=== PATIENT | male | born 1950 | race Caucasian/White ===

== ENCOUNTER → 2016-06-07 | Outpatient (CLI) | payer OTHER ==
[2016-06-07 13:14] LABS: CHLORIDE,CL 106 mmol/L (98-110); SODIUM,NA 141 mmol/L (136-146)
== END ==
LOC: MW.LAB 12:09
PROVIDERS: ATTEND Internal Medicine
DX: N18.3 Chronic kidney disease, stage 3 (moderate) (principal)
CPT/HCPCS: 36415; 80069; 82306; 82310; 83970; 85025

== ENCOUNTER 2019-01-30 08:52 | Inpatient (IN) | payer OTHER ==
[2019-01-30] MEDS ORDERED: Albuterol/Ipratropium 3.0-0.5 MG/3 ML Neb Soln NEB ONE (08:55)
[2019-01-30] MEDS ORDERED: methylPREDNISolone Sodium Succinate 125 MG/2 ML SDV IVPUSH ONE (08:55)
[2019-01-30] MEDS ORDERED: Albuterol/Ipratropium 3.0-0.5 MG/3 ML Neb Soln ONE (08:55)
--- NOTE | 2019-01-30 08:56 | EDM.PDOC ---
ED HPI GENERAL MEDICAL PROBLEM - General Stated Complaint: SOB Time Seen by Provider: 01/30/19 08:56 Source of Information: Reports: Patient - History of Present Illness INITIAL COMMENTS - FREE TEXT/NARRATIVE: HISTORY AND PHYSICAL: History of present illness: [Patient presents with hypoxia shortness of breath and audible expiratory wheeze no fever nausea vomiting chills sweats no chest pain short headache dizziness palpitation no bowel or urine symptoms He has been followed from a renal function standpoint over the last several months with nephrology and is aware that he may be requiring dialysis at some point in the near future however they have not elected to go on dialysis as of right now , he is making urine his last void was this morning Review of systems: As per history of present illness and below otherwise all systems reviewed and negative. Past medical history: As per history of present illness and as reviewed below otherwise noncontributory. Surgical history: As per history of present illness and as reviewed below otherwise noncontributory. Social history: No reported history of drug or alcohol abuse. Family history: As per history of present illness and as reviewed below otherwise noncontributory. Physical exam: HEENT: Atraumatic, normocephalic, pupils reactive, negative for conjunctival pallor or scleral icterus, mucous membranes moist, throat clear, neck supple, nontender, trachea midline. LunExpiratory wheeze throughouteath sounds equal bilaterally, chest nontender. chest cleared well post DuoNeb and Solu-Medrol Heart: S1S2, regular, negative for clicks, rubs, or JVD. Abdomen: Soft, nondistended, nontender. Negative for masses or hepatosplenomegaly. Negative for costovertebral tenderness. Pelvis: Stable nontender. Genitourinary: Deferred. Rectal: Deferred. Extremities: Atraumatic, negative for cords or calf pain. Neurovascular unremarkable. Neuro: Awake, alert, oriented. Cranial nerves II through XII unremarkable. Cerebellum unremarkable. Motor and sensory unremarkable throughout. Exam nonfocal. Diagnostics: [TBC CMP UA troponin d-dimer Blood cultures 2 ] AG Chest 1 view Therapeutics: [ normal saline Zosyn Vancomycin Impression: [ right upper lobe infiltrate CHF Renal failure Chronic history of baseline ] Definitive disposition and diagnosis as appropriate pending reevaluation and review of above. - Related Data Allergies Allergy/AdvReac Type Severity Reaction Status Date / Time No Known Allergies Allergy Verified 01/30/19 08:57 Home Meds: Home Meds Aspirin 81 mg PO DAILY 01/30/19 [History] Cabergoline [Dostinex] 0.5 mg PO ASDIRECTED 01/30/19 [History] Calcitriol [Rocaltrol] 0.25 mg PO DAILY 01/30/19 [History] Doxazosin [Cardura] 3 mg PO DAILY 01/30/19 [History] Furosemide 80 mg PO DAILY 01/30/19 [History] Glimepiride [Amaryl] 4 mg PO BID 01/30/19 [History] Labetalol HCl [Labetalol] 300 mg PO DAILY 01/30/19 [History] Lisinopril 40 mg PO DAILY 01/30/19 [History] Multivitamin [Multivitamins] 1 tab PO DAILY 01/30/19 [History] Potassium Chloride [Klor-Con] 10 meq PO DAILY 01/30/19 [History] amLODIPine [Norvasc] 10 mg PO DAILY 01/30/19 [History] atorvaSTATin [Lipitor] 10 mg PO DAILY 01/30/19 [History] ED ROS GENERAL - Review of Systems Review Of Systems: See Below ED EXAM, GENERAL - Physical Exam Exam: See Below Course - Vital Signs Last Recorded V/S: Last Vital Signs Temp 96.6 F 01/30/19 08:57 Pulse 51 L 01/30/19 10:06 Resp 18 01/30/19 10:06 BP 122/62 01/30/19 10:06 Pulse Ox 94 L 01/30/19 10:06 - Orders/Labs/Meds Orders: Active Orders 24 hr Category Date Time Status EKG Documentation Completion [RC] STAT Care 01/30/19 08:56 Active RT Aerosol Therapy [RC] ASDIRECTED Care 01/30/19 08:56 Active B-TYPE NATRIURETIC PEPTIDE,BNP [CHEM] Stat Lab 01/30/19 09:15 Received Piperacillin/Tazobactam [Zosyn] 2.25 gm Med 01/30/19 10:40 Ordered Sodium Chloride 0.9% [Normal Saline] 50 ml IV ONETIME Sodium Chloride 0.9% [Normal Saline] 1,000 ml Med 01/30/19 09:00 Active IV STAT Vancomycin 1 gm Med 01/30/19 10:40 Ordered Sodium Chloride 0.9% [Normal Saline (AdvBag)] 250 ml IV ONETIME Medication Orders Sodium Chloride (Normal Saline) 1,000 mls @ 125 mls/hr IV STAT XIAO Last Admin: 01/30/19 09:12 Dose: 125 mls/hr Labs: Laboratory Tests 01/30/19 01/30/19 01/30/19 Range/Units 09:15 09:15 09:15 WBC 7.34 (4.0-11.0) K/uL RBC 3.74 L (4.50-5.90) M/uL Hgb 11.3 L (13.0-17.0) g/dL Hct 37.8 L (38.0-50.0) % MCV 101.1 H (80.0-98.0) fL MCH 30.2 (27.0-32.0) pg MCHC 29.9 L (31.0-37.0) g/dL RDW Std Deviation 53.3 (28.0-62.0) fl RDW Coeff of Amberly 15 (11.0-15.0) % Plt Count 212 (150-400) K/uL MPV 10.20 (7.40-12.00) fL Neut % (Auto) 79.9 (48.0-80.0) % Lymph % (Auto) 12.3 L (16.0-40.0) % [place] % (Auto) 6.0 (0.0-15.0) % Eos % (Auto) 1.5 (0.0-7.0) % Baso % (Auto) 0.3 (0.0-1.5) % Neut # (Auto) 5.9 H (1.4-5.7) K/uL Lymph # (Auto) 0.9 (0.6-2.4) K/uL [place] # (Auto) 0.4 (0.0-0.8) K/uL Eos # (Auto) 0.1 (0.0-0.7) K/uL Baso # (Auto) 0.0 (0.0-0.1) K/uL Nucleated RBC % 0.0 /100WBC Nucleated RBCs # 0 K/uL INR 1.11 D-Dimer, Quantitative 2.80 H (0.0-0.50) mg/L FEU Sodium 143 (136-148) mmol/L Potassium 5.1 (3.5-5.1) mmol/L Chloride 108 H (98-107) mmol/L Carbon Dioxide 25.5 (21.0-32.0) mmol/L BUN 62 H (7.0-18.0) mg/dL Creatinine 6.3 H (0.8-1.3) mg/dL Est Cr Clr Drug Dosing 12.68 mL/min Estimated GFR (MDRD) 8.9 ml/min Glucose 124 H (74-106) mg/dL Calcium 8.2 L (8.5-10.1) mg/dL Total Bilirubin 0.6 (0.2-1.0) mg/dL AST 12 L (15-37) IU/L ALT 22 (14-63) IU/L Alkaline Phosphatase 68 (46-116) U/L Troponin I < 0.050 (0.000-0.056) ng/mL Total Protein 6.5 (6.4-8.2) g/dL Albumin 3.1 L (3.4-5.0) g/dL Globulin 3.4 (2.6-4.0) g/dL Albumin/Globulin Ratio 0.9 (0.9-1.6) Meds: Medications Generic Name Dose Route Start Last Admin Trade Name Freq PRN Reason Stop Dose Admin Sodium Chloride 1,000 mls @ 125 mls/hr 01/30/19 09:00 01/30/19 09:12 Normal Saline IV 125 mls/hr STAT XIAO Administration Discontinued Medications Generic Name Dose Route Start Last Admin Trade Name Freq PRN Reason Stop Dose Admin Albuterol/Ipratropium 3 ml 01/30/19 08:55 01/30/19 09:09 Duoneb 3.0-0.5 Mg/3 Ml NEB 01/30/19 08:56 3 ml ONETIME ONE Administration Albuterol/Ipratropium Confirm 01/30/19 08:55 01/30/19 09:12 Duoneb 3.0-0.5 Mg/3 Ml Administered 01/30/19 08:56 Not Given Dose 3 ml .ROUTE .STK-MED ONE Methylprednisolone Sodium Succinate 125 mg 01/30/19 08:55 01/30/19 09:12 Solu-Medrol IVPUSH 01/30/19 08:56 125 mg ONETIME ONE Administration Departure - Departure Time of Disposition: 10:43 Disposition: Admitted As Inpatient 67 Condition: Poor Clinical Impression: Hypoxia, Right upper lobe pneumonia - Discharge Information - My Orders Last 24 Hours: My Active Orders 01/30/19 08:56 EKG Documentation Completion [RC] STAT RT Aerosol Therapy [RC] ASDIRECTED 01/30/19 09:00 Sodium Chloride 0.9% [Normal Saline] 1,000 ml IV STAT 01/30/19 09:15 B-TYPE NATRIURETIC PEPTIDE,BNP [CHEM] Stat 01/30/19 10:40 Piperacillin/Tazobactam [Zosyn] 2.25 gm Sodium Chloride 0.9% [Normal Saline] 50 ml IV ONETIME Vancomycin 1 gm Sodium Chloride 0.9% [Normal Saline (AdvBag)] 250 ml IV ONETIME - Assessment/Plan Last 24 Hours: My Active Orders 01/30/19 08:56 EKG Documentation Completion [RC] STAT RT Aerosol Therapy [RC] ASDIRECTED 01/30/19 09:00 Sodium Chloride 0.9% [Normal Saline] 1,000 ml IV STAT 01/30/19 09:15 B-TYPE NATRIURETIC PEPTIDE,BNP [CHEM] Stat 01/30/19 10:40 Piperacillin/Tazobactam [Zosyn] 2.25 gm Sodium Chloride 0.9% [Normal Saline] 50 ml IV ONETIME Vancomycin 1 gm Sodium Chloride 0.9% [Normal Saline (AdvBag)] 250 ml IV ONETIME
[2019-01-30] MEDS ORDERED: Sodium Chloride 0.9% 1,000 ML IV SCH (09:00)
--- NOTE | 2019-01-30 09:52 | CR ---
INDICATION: Pain. Shortness of breath. TECHNIQUE: AP portable supine chest. FINDINGS: Shallow inspiration. Infiltrate right upper lobe. Clear left lung. Cardiac enlargement likely accentuated by the portable technique. IMPRESSION: Right upper lobe infiltrate. Radiographic follow up recommended after appropriate treatment. Dictated by Janes Dwyer MD @ Jan 30 2019 9:50AM Signed by Dr. Janes Dwyer @ Jan 30 2019 9:50AM
[2019-01-30 10:04] LABS: BLOOD UREA NITROGEN,BUN 62 mg/dL (7.0-18.0); CARBON DIOXIDE,CO2 25.5 mmol/L (21.0-32.0); CHLORIDE,CL 108 mmol/L (98-107); GLUCOSE RANDOM 124 mg/dL (74-106); POTASSIUM,K 5.1 mmol/L (3.5-5.1); SODIUM,NA 143 mmol/L (136-148)
[2019-01-30] MEDS ORDERED: Piperacillin/Tazobactam 2.25 GM in Sodium Chloride 0.9% 50 ML IV ONE (10:40)
[2019-01-30] MEDS ORDERED: Ondansetron 4 MG/2 ML SDV IVPUSH PRN (12:29)
[2019-01-30] MEDS ORDERED: Ondansetron 4 MG Tab.DIS PO PRN (12:29)
[2019-01-30] MEDS ORDERED: Acetaminophen 325 MG Tab PO PRN (12:29)
[2019-01-30] MEDS ORDERED: Heparin Sodium 5,000 Units/ML Vial SUBCUT SCH (12:30)
[2019-01-30] MEDS ORDERED: Azithromycin 250 MG Tab PO ONE (12:42)
[2019-01-30] MEDS ORDERED: cefTRIAXone 1 GM in Premix Bag 1 BAG IV SCH (12:45)
[2019-01-30] MEDS ORDERED: CABERGOLINE 0.5 MG PO SCH (12:45)
--- NOTE | 2019-01-30 13:56 | PCM.HP.2 ---
H&P History of Present Illness - General Date of Service: 01/30/19 Admit Problem/Dx: Admission Diagnosis/Problem Admission Diagnosis/Problem Hypoxia Source of Information: Patient History Limitations: Reports: No Limitations - History of Present Illness Initial Comments - Free Text/Narative: 69-year-old male presented to ER with shortness of breath for the past 3 weeks but acutely worsened over the past 1 day. He checked his oxygen level with a home pulse ox, noticed it was low, and then came to the ER. He has a PMH of end stage renal disease, DM II, HTN and sleep apnea. He follows up with a precinct commanding officer as an out-patient and had a fistula placed recently, that has matured, in anticipation for starting dialysis. He has not started any dialysis treatments as of yet. Patient also reports shortness of breath when lying down and having to sleep on at least 2 pillows at night time. He denies having any fevers, chills, cough, nausea, vomiting, diarrhea, abdominal pain, calf pain or leg swelling. In the ER, patient was requiring 8 L of oxygen to maintain adequate oxygen saturation. Creatinine level was 6.3, BUN 62, D-dimer 2.8 and BNP 391. Patient was given dose of duoneb treatment and IV solumedrol. CXR showed a RUL infiltrate and signs of pulmonary edema. Attempts were made to transfer patient from the ER but were unsuccessful due to inclement weather. - Related Data Allergies/Adverse Reactions: Allergies Allergy/AdvReac Type Severity Reaction Status Date / Time No Known Allergies Allergy Verified 01/30/19 08:57 Home Medications: Home Meds Aspirin 81 mg PO DAILY 01/30/19 [History] Cabergoline [Dostinex] 0.5 mg PO ASDIRECTED 01/30/19 [History] Calcitriol [Rocaltrol] 0.25 mg PO DAILY 01/30/19 [History] Doxazosin [Cardura] 3 mg PO DAILY 01/30/19 [History] Furosemide 80 mg PO DAILY 01/30/19 [History] Glimepiride [Amaryl] 4 mg PO BID 01/30/19 [History] Labetalol HCl [Labetalol] 300 mg PO DAILY 01/30/19 [History] Lisinopril 40 mg PO DAILY 01/30/19 [History] Multivitamin [Multivitamins] 1 tab PO DAILY 01/30/19 [History] Potassium Chloride [Klor-Con] 10 meq PO DAILY 01/30/19 [History] amLODIPine [Norvasc] 10 mg PO DAILY 01/30/19 [History] atorvaSTATin [Lipitor] 10 mg PO DAILY 01/30/19 [History] Past Medical History HEENT History: Reports: Cataract, Hard of Hearing, Other (See Below) Other HEENT History: Left ear deaf Cardiovascular History: Reports: High Cholesterol, Hypertension Respiratory History: Reports: Pneumonia, Recurrent Gastrointestinal History: Reports: None Genitourinary History: Reports: Renal Disease, UTI, Recurrent, Other (See Below) Other Genitourinary History: Stage 4 kidney failure Musculoskeletal History: Reports: None Neurological History: Reports: None Psychiatric History: Reports: None Endocrine/Metabolic History: Reports: Diabetes, Type II, Hypokalemia Hematologic History: Reports: None Immunologic History: Reports: None Oncologic (Cancer) History: Reports: None Dermatologic History: Reports: None - Infectious Disease History Infectious Disease History: Reports: Chicken Pox, Measles - Past Surgical History Head Surgeries/Procedures: Reports: None HEENT Surgical History: Reports: Cataract Surgery Cardiovascular Surgical History: Reports: None Respiratory Surgical History: Reports: None GI Surgical History: Reports: None Male Surgical History: Reports: None Endocrine Surgical History: Reports: None Neurological Surgical History: Reports: None Musculoskeletal Surgical History: Reports: None Oncologic Surgical History: Reports: None Dermatological Surgical History: Reports: None Social & Family History - Family History Family Medical History: Noncontributory - Tobacco Use Smoking Status *Q: Former Smoker Used Tobacco, but Quit: Yes Month/Year Tobacco Last Used: 25 years - Caffeine Use Caffeine Use: Reports: Coffee - Recreational Drug Use Recreational Drug Use: No H&P Review of Systems - Review of Systems: Review Of Systems: Comprehensive ROS is negative, except as noted in HPI. Exam - Exam Exam: See Below - Vital Signs Vital Signs: Last Vital Signs Temp 96.6 F 01/30/19 08:57 Pulse 55 L 01/30/19 11:26 Resp 18 01/30/19 11:26 BP 122/62 01/30/19 10:06 Pulse Ox 95 01/30/19 11:26 Weight: 314 lb 9.594 oz - Exam General: Alert, Oriented, Mild Distress HEENT: Conjunctiva Clear, EOMI, Hearing Intact, Mucosa Moist & [place] Neck: Supple, Trachea Midline Lungs: Wheezing, Other (quiet breath sounds bilaterally) Cardiovascular: Regular Rate, Regular Rhythm GI/Abdominal Exam: Normal Bowel Sounds, Soft, Non-Tender, No Distention, Other ( morbidly obese) Extremities: Normal Inspection, No Pedal Edema Peripheral Pulses: 2+: Posterior Tibial (L), Posterior Tibial (R) Skin: Warm, Dry, Intact Neurological: Cranial Nerves Intact, Strength Equal Bilateral, Normal Tone Psychiatric: Alert, Normal Affect, Normal Mood - Patient Data Lab Results Last 24 hrs: Laboratory Results - last 24 hr 01/30/19 01/30/19 01/30/19 Range/Units 09:15 09:15 09:15 WBC 7.34 (4.0-11.0) K/uL RBC 3.74 L (4.50-5.90) M/uL Hgb 11.3 L (13.0-17.0) g/dL Hct 37.8 L (38.0-50.0) % MCV 101.1 H (80.0-98.0) fL MCH 30.2 (27.0-32.0) pg MCHC 29.9 L (31.0-37.0) g/dL RDW Std Deviation 53.3 (28.0-62.0) fl RDW Coeff of Amberly 15 (11.0-15.0) % Plt Count 212 (150-400) K/uL MPV 10.20 (7.40-12.00) fL Neut % (Auto) 79.9 (48.0-80.0) % Lymph % (Auto) 12.3 L (16.0-40.0) % [place] % (Auto) 6.0 (0.0-15.0) % Eos % (Auto) 1.5 (0.0-7.0) % Baso % (Auto) 0.3 (0.0-1.5) % Neut # (Auto) 5.9 H (1.4-5.7) K/uL Lymph # (Auto) 0.9 (0.6-2.4) K/uL [place] # (Auto) 0.4 (0.0-0.8) K/uL Eos # (Auto) 0.1 (0.0-0.7) K/uL Baso # (Auto) 0.0 (0.0-0.1) K/uL Nucleated RBC % 0.0 /100WBC Nucleated RBCs # 0 K/uL INR 1.11 D-Dimer, Quantitative 2.80 H (0.0-0.50) mg/L FEU Lactate (0.20-2.00) mmol/L Sodium 143 (136-148) mmol/L Potassium 5.1 (3.5-5.1) mmol/L Chloride 108 H (98-107) mmol/L Carbon Dioxide 25.5 (21.0-32.0) mmol/L BUN 62 H (7.0-18.0) mg/dL Creatinine 6.3 H (0.8-1.3) mg/dL Est Cr Clr Drug Dosing 12.68 mL/min Estimated GFR (MDRD) 8.9 ml/min Glucose 124 H (74-106) mg/dL POC Glucose (60-110) mg/dL Calcium 8.2 L (8.5-10.1) mg/dL Total Bilirubin 0.6 (0.2-1.0) mg/dL AST 12 L (15-37) IU/L ALT 22 (14-63) IU/L Alkaline Phosphatase 68 (46-116) U/L Troponin I < 0.050 (0.000-0.056) ng/mL B-Natriuretic Peptide (<100) PG/ML Total Protein 6.5 (6.4-8.2) g/dL Albumin 3.1 L (3.4-5.0) g/dL Globulin 3.4 (2.6-4.0) g/dL Albumin/Globulin Ratio 0.9 (0.9-1.6) 01/30/19 01/30/19 01/30/19 Range/Units 09:15 10:58 12:16 WBC (4.0-11.0) K/uL RBC (4.50-5.90) M/uL Hgb (13.0-17.0) g/dL Hct (38.0-50.0) % MCV (80.0-98.0) fL MCH (27.0-32.0) pg MCHC (31.0-37.0) g/dL RDW Std Deviation (28.0-62.0) fl RDW Coeff of Amberly (11.0-15.0) % Plt Count (150-400) K/uL MPV (7.40-12.00) fL Neut % (Auto) (48.0-80.0) % Lymph % (Auto) (16.0-40.0) % [place] % (Auto) (0.0-15.0) % Eos % (Auto) (0.0-7.0) % Baso % (Auto) (0.0-1.5) % Neut # (Auto) (1.4-5.7) K/uL Lymph # (Auto) (0.6-2.4) K/uL [place] # (Auto) (0.0-0.8) K/uL Eos # (Auto) (0.0-0.7) K/uL Baso # (Auto) (0.0-0.1) K/uL Nucleated RBC % /100WBC Nucleated RBCs # K/uL INR D-Dimer, Quantitative (0.0-0.50) mg/L FEU Lactate 0.5 (0.20-2.00) mmol/L Sodium (136-148) mmol/L Potassium (3.5-5.1) mmol/L Chloride (98-107) mmol/L Carbon Dioxide (21.0-32.0) mmol/L BUN (7.0-18.0) mg/dL Creatinine (0.8-1.3) mg/dL Est Cr Clr Drug Dosing mL/min Estimated GFR (MDRD) ml/min Glucose (74-106) mg/dL POC Glucose 130 H (60-110) mg/dL Calcium (8.5-10.1) mg/dL Total Bilirubin (0.2-1.0) mg/dL AST (15-37) IU/L ALT (14-63) IU/L Alkaline Phosphatase (46-116) U/L Troponin I (0.000-0.056) ng/mL B-Natriuretic Peptide 391 H (<100) PG/ML Total Protein (6.4-8.2) g/dL Albumin (3.4-5.0) g/dL Globulin (2.6-4.0) g/dL Albumin/Globulin Ratio (0.9-1.6) Result Diagrams: 01/30/19 09:15 01/30/19 09:15 Doc Results Last 24 hrs: Microbiology 01/30/19 10:58 Anaerobic Blood Culture - Final Blood - Venous Problem List Initiated/Reviewed/Updated: Yes Orders Last 24hrs: Active Orders 24 hr Category Date Time Status Admission Status [Patient Status] [ADT] Stat ADT 01/30/19 10:44 Active Admission Status [Patient Status] [ADT] Stat ADT 01/30/19 12:17 Active Blood Glucose Check, Bedside [RC] TIDMEALS Care 01/30/19 12:29 Active EKG Documentation Completion [RC] STAT Care 01/30/19 08:56 Active Oxygen Therapy [RC] PRN Care 01/30/19 12:29 Active RT Aerosol Therapy [RC] ASDIRECTED Care 01/30/19 08:56 Active Up ad Karma [RC] ASDIRECTED Care 01/30/19 12:29 Active VTE/DVT Education [RC] PER UNIT ROUTINE Care 01/30/19 12:29 Active Vital Signs [RC] Q4H Care 01/30/19 12:29 Active [place] [employer] Diet [DIET] Diet 01/30/19 Lunch Active CULTURE BLOOD [BC] Stat Lab 01/30/19 10:58 Results CULTURE BLOOD [BC] Stat Lab 01/30/19 11:12 Received Acetaminophen [Tylenol] Med 01/30/19 12:29 Active 650 mg PO Q4H PRN Aspirin Med 01/31/19 09:00 Active 81 mg PO DAILY Doxazosin [Cardura] Med 01/31/19 09:00 Active 3 mg PO DAILY Furosemide [Lasix] 80 mg Med 01/30/19 13:15 Active Sodium Chloride 0.9% [Normal Saline] 50 ml IV Q12H Heparin Sodium Med 01/30/19 12:30 Active 5,000 units SUBCUT Q8H Labetalol [Normodyne] Med 01/31/19 09:00 Active 300 mg PO DAILY Lisinopril [Prinivil] Med 01/31/19 09:00 Active 40 mg PO DAILY Ondansetron [Zofran ODT] Med 01/30/19 12:29 Active 4 mg PO Q4H PRN Ondansetron [Zofran] Med 01/30/19 12:29 Active 4 mg IVPUSH Q4H PRN Patient's Own Medication [Ptom] Med 01/30/19 12:45 Active 1 each PO ASDIRECTED amLODIPine [Norvasc] Med 01/31/19 09:00 Active 10 mg PO DAILY atorvaSTATin [Lipitor] Med 01/31/19 09:00 Active 10 mg PO DAILY cefTRIAXone [Rocephin in Dextrose,Iso-Osm 1 GM/50 ML] 1 Med 01/30/19 12:45 Active gm Premix Bag 1 bag IV Q24H Blood Culture x2 Reflex Set [OM.PC] Stat Oth 01/30/19 10:45 Ordered Resuscitation Status Routine Resus Stat 01/30/19 12:29 Ordered Medication Orders Acetaminophen (Tylenol) 650 mg PO Q4H PRN PRN Reason: Pain (Mild 1-3)/fever Amlodipine Besylate (Norvasc) 10 mg PO DAILY [facility] Aspirin (Aspirin) 81 mg PO DAILY XIAO Atorvastatin Calcium (Lipitor) 10 mg PO DAILY XIAO Doxazosin Mesylate (Cardura) 3 mg PO DAILY [facility] Heparin Sodium (Porcine) (Heparin Sodium) 5,000 units SUBCUT Q8H [facility] Ceftriaxone Sodium/Dextrose 1 (gm/ Premix) 50 mls @ 100 mls/hr IV Q24H XIAO Furosemide 80 mg/ Sodium (Chloride) 58 mls @ 100 mls/hr IV Q12H XIAO Last Admin: 01/30/19 13:47 Dose: 100 mls/hr Labetalol HCl (Normodyne) 300 mg PO DAILY [facility] Lisinopril (Prinivil) 40 mg PO DAILY [facility] Ondansetron HCl (Zofran Odt) 4 mg PO Q4H PRN PRN Reason: nausea, able to take PO Ondansetron HCl (Zofran) 4 mg IVPUSH Q4H PRN PRN Reason: Nausea Cabergoline [ (Dostinex] 0.5 Mg) 1 each PO ASDIRECTED [facility] Assessment/Plan Comment:: Assessment: 1. Acute hypoxic respiratory failure secondary to pulmonary edema vs pneumonia. 2. End stage renal disease. Plan: 1. For acute hypoxic respiratory failure, precinct commanding officer Dr. Almazan from [facility] was contacted and recommended started patient on lasix IV 80 mg q12h. Patient started on ceftriaxone and azithromycin. 2. As dialysis capabilities are not available at current facility, patient was accepted for transfer by Dr. Nelson to [facility] in [place], [place]. Patient transferred via ground ambulance.
--- NOTE | 2019-01-30 14:11 | PN ---
[facility] Physician - Brief Progress [id number]/20/2019 14:09[facility] Sammie Gonzalez, MALKA - MARILYN (FRANDY) - MWN ROCIO HERBERTDate of Service 01/30/2019 14:09HPI/Events of Note 69 year old male with end stage kidney diseaseNow with shortness of breath, and progression o f disease causing fluid retention and bilateral pleural effusions.Patient admitted with SOB/PHU.He wi ll be transferring to start dialysis once the weather clears.D/W Bedside attending.Nephro has been co nsulted as wellLasix gtt orderedWould do Q4 labs, and monitor electrolytes closelyMaintain Spo2 > 92% Will monitor until transfer, please call as neededInterventions Major-Respiratory failure - evaluati on and managementMinor-Communication with other healthcare providers and/or family, Routine modificat ions to care plan (e.g. PRN medications for pain, fever)
[2019-01-31] MEDS ORDERED: Doxazosin 2 MG Tab PO SCH (09:00)
[2019-01-31] MEDS ORDERED: Labetalol 100 MG Tab PO SCH (09:00)
[2019-01-31] MEDS ORDERED: amLODIPine 5 MG Tab PO SCH (09:00)
[2019-01-31] MEDS ORDERED: Aspirin 81 MG Tab.Chew PO SCH (09:00)
[2019-01-31] MEDS ORDERED: atorvaSTATin 10 MG Tab PO SCH (09:00)
[2019-01-31] MEDS ORDERED: Lisinopril 10 MG Tab PO SCH (09:00)
== END 2019-01-30 14:35 | DRG 193 ==
LOC: MW.ED 08:52 → MW.ICU 10:44
PROVIDERS: ADMIT Internal Medicine; ATTEND Internal Medicine
DX: J18.9 Pneumonia, unspecified organism (principal); J96.01 Acute respiratory failure with hypoxia; N18.6 End stage renal disease; I12.0 Hypertensive chronic kidney disease with stage 5 chronic kidney disease or end stage renal disease; E11.22 Type 2 diabetes mellitus with diabetic chronic kidney disease; E78.00 Pure hypercholesterolemia, unspecified; Z87.01 Personal history of pneumonia (recurrent); Z87.440 Personal history of urinary (tract) infections; Z79.82 Long term (current) use of aspirin; Z79.899 Other long term (current) drug therapy; Z98.49 Cataract extraction status, unspecified eye; Z87.891 Personal history of nicotine dependence
CPT/HCPCS: 36415; 71045; 71045-26; 80053; 82962; 83605; 83880; 84484; 85025; 85379; 85610; 87040; 93005; 94640; 96365; 96375; 99284; 99285-25; J1940; J2543; J2930; J3370; J7040; J7050; J7620-GY

== ENCOUNTER 2021-04-02 10:44 | Emergency (ER) | payer MEDICARE, OTHER ==
[2021-04-02] MEDS ORDERED: Sodium Chloride 0.9% 10 ML Syringe FLUSH PRN (10:56)
[2021-04-02] MEDS ORDERED: Sodium Chloride 0.9% 2.5 ML Syringe FLUSH PRN (10:56)
[2021-04-02 12:04] LABS: BLOOD UREA NITROGEN,BUN 18 mg/dL (7.0-18.0); CARBON DIOXIDE,CO2 30.2 mmol/L (21.0-32.0); CHLORIDE,CL 99 mmol/L (98-107); GLUCOSE RANDOM 131 mg/dL (74-106); POTASSIUM,K 3.6 mmol/L (3.5-5.1); SODIUM,NA 137 mmol/L (136-148)
[2021-04-02 12:21] LABS: CORONAVIRUS COVID-19 NAA NEGATIVE (NEGATIVE); INFLUENZA A NAA NEGATIVE (NEGATIVE); INFLUENZA B NAA NEGATIVE (NEGATIVE)
[2021-04-02] MEDS ORDERED: cefTRIAXone 1 GM in Sodium Chloride 0.9% 50 ML IV ONE (12:45)
[2021-04-02] MEDS ORDERED: Enoxaparin 150 MG/1 ML Syringe SUBCUT ONE (13:09)
== END 2021-04-02 14:56 | disposition home or self-care (01) ==
LOC: MW.ED 10:44
DX: J18.9 Pneumonia, unspecified organism (principal); R09.02 Hypoxemia; E11.22 Type 2 diabetes mellitus with diabetic chronic kidney disease; I12.9 Hypertensive chronic kidney disease with stage 1 through stage 4 chronic kidney disease, or unspecified chronic kidney disease; N18.4 Chronic kidney disease, stage 4 (severe); E78.00 Pure hypercholesterolemia, unspecified; Z20.822 Contact with and (suspected) exposure to COVID-19; Z79.82 Long term (current) use of aspirin; Z79.899 Other long term (current) drug therapy
CPT/HCPCS: 0240U; 36415; 71045; 80053; 84484; 85025; 93005; 93971; 96365; 96372; 99285; J0696; J1650

== ENCOUNTER 2021-04-05 10:38 | Emergency (ER) | payer MEDICARE, OTHER ==
[2021-04-05] MEDS ORDERED: Sodium Chloride 0.9% 10 ML Syringe FLUSH PRN (10:47)
[2021-04-05] MEDS ORDERED: Sodium Chloride 0.9% 2.5 ML Syringe FLUSH PRN (10:47)
[2021-04-05 13:26] LABS: BLOOD UREA NITROGEN,BUN 23 mg/dL (7.0-18.0); CHLORIDE,CL 99 mmol/L (98-107); GLUCOSE RANDOM 113 mg/dL (74-106); POTASSIUM,K 3.5 mmol/L (3.5-5.1); SODIUM,NA 137 mmol/L (136-148)
[2021-04-05] MEDS ORDERED: Azithromycin 500 MG in Sodium Chloride 0.9% 250 ML IV SCH (14:00)
== END 2021-04-05 14:52 | disposition home or self-care (01) ==
LOC: MW.ED 10:38
DX: J18.9 Pneumonia, unspecified organism (principal); R09.02 Hypoxemia; E11.22 Type 2 diabetes mellitus with diabetic chronic kidney disease; I12.9 Hypertensive chronic kidney disease with stage 1 through stage 4 chronic kidney disease, or unspecified chronic kidney disease; N18.4 Chronic kidney disease, stage 4 (severe); E78.00 Pure hypercholesterolemia, unspecified; Z79.82 Long term (current) use of aspirin; Z79.899 Other long term (current) drug therapy; Z20.822 Contact with and (suspected) exposure to COVID-19
CPT/HCPCS: 36415; 70450; 71275; 80053; 83735; 84484; 85025; 85610; 85730; 93005; 96365; 99284; J0456; J7050; U0002

== ENCOUNTER 2021-05-15 22:48 | Emergency (ER) | payer MEDICARE, OTHER ==
[2021-05-15] MEDS ORDERED: Calcium Gluconate 10% 1 GM/10 ML SDV ONE (22:53)
[2021-05-15] MEDS ORDERED: Calcium Gluconate 10% 1 GM/10 ML SDV IV STA (22:55)
[2021-05-15 23:23] LABS: BLOOD UREA NITROGEN,BUN 41 mg/dL (7.0-18.0); CARBON DIOXIDE,CO2 30.5 mmol/L (21.0-32.0); CHLORIDE,CL 101 mmol/L (98-107); GLUCOSE RANDOM 276 mg/dL (74-106); POTASSIUM,K 4.7 mmol/L (3.5-5.1); SODIUM,NA 139 mmol/L (136-148)
[2021-05-15] MEDS ORDERED: Lactated Ringers 1,000 ML IV STA (23:42)
[2021-05-15] MEDS ORDERED: Cefepime 1 GM in Premix Bag 1 BAG IV ONE (23:43)
[2021-05-15] MEDS ORDERED: VANCOmycin 2 GM/400 ML 2 GM in Premix Bag 1 BAG IV ONE ×4 (23:45)
[2021-05-16 00:16] LABS: CORONAVIRUS COVID-19 NAA NEGATIVE (NEGATIVE); INFLUENZA A NAA NEGATIVE (NEGATIVE); INFLUENZA B NAA NEGATIVE (NEGATIVE)
[2021-05-16] MEDS ORDERED: Iopamidol 755 MG/ML 500 ML Multipack Bottle IVPUSH ONE (00:18)
== END 2021-05-16 01:33 ==
LOC: MW.ED 22:48
DX: R55 Syncope and collapse (principal); R09.02 Hypoxemia; I71.00 Dissection of unspecified site of aorta; I31.2 Hemopericardium, not elsewhere classified; I71.9 Aortic aneurysm of unspecified site, without rupture; J98.59 Other diseases of mediastinum, not elsewhere classified; E11.22 Type 2 diabetes mellitus with diabetic chronic kidney disease; I13.2 Hypertensive heart and chronic kidney disease with heart failure and with stage 5 chronic kidney disease, or end stage renal disease; N18.6 End stage renal disease; E78.00 Pure hypercholesterolemia, unspecified; Z99.2 Dependence on renal dialysis; Z79.82 Long term (current) use of aspirin; Z79.899 Other long term (current) drug therapy; Z20.822 Contact with and (suspected) exposure to COVID-19
CPT/HCPCS: 0240U; 36415; 36556; 71045; 71275; 74174; 80053; 83605; 84484; 85025; 85610; 85730; 87040; 93005; 96365; 96366; 96368; 96375; 99291; 99292; J0610; J0692; J3370; Q9967; 93010